=== PATIENT | female | born 1970 | race Two or more races ===

== ENCOUNTER → 2025-04-19 | Day surgery (SDC) | payer MEDICAID ==
[2025-04-17 12:11] LABS: Hematocrit 41.2 % (36.0-46.0); Hemoglobin 13.7 g/dL (12.2-16.2); Mean Corpuscular Hemoglobin 28.5 pg (28.0-32.0); Mean Corpuscular Volume 85.6 fL (80.0-100.0); Nucleated Red Blood Cells % 0.1 %
[2025-04-17 12:23] LABS: Urine Protein, UAD Negative (Negative)
[2025-04-17 12:35] LABS: INR 0.99 (0.9-1.15); Partial Thromboplastin Time 27.4 SEC (24.5-34.5); Prothrombin Time 10.5 sec (9.3-11.8)
[2025-04-17 12:39] LABS: Alanine Aminotransferase 10 U/L (7-40); Albumin 4.5 g/dL (3.2-4.8); Alkaline Phosphatase 86 U/L (46-116); Anion Gap 7 (5-15); BUN/Creatinine Ratio 17.3 (10.0-20.0); Blood Urea Nitrogen 13 mg/dL (9-23); Calcium 9.9 mg/dL (8.7-10.4); Carbon Dioxide 28 mmol/L (20-31); Chloride 107 mmol/L (98-107); Glucose 84 mg/dL (74-106); Potassium 4.3 mmol/L (3.5-5.1); Sodium 142 mmol/L (136-145); Total Protein 6.8 g/dL (5.7-8.2)
[2025-04-17 12:40] LABS: Bilirubin, Total 0.4 mg/dL (0.2-1.0)
[~2025-04-19] VITALS: Ht 167.6 cm; Wt 56.7 kg
[~2025-04-19] MED LIST: CHOL200064 PO; LIDOCAINE 1% INJ PF 5ML AMP ONE; NIFE1TAB31 PO; OMEP20TA PO; ONDANSETRON HCL 4 MG/2 ML VIAL ONE; PROPOFOL 10 MG/ML 20 ML IV ONE
--- NOTE | 2025-04-19 08:18 | DVHHP2 ---
GI H&P Pre-Op Assessment Date: 04/19/25 Chief complaint: colon cancer screening, epigastric pain HPI: per clinic note Past medical history: per clinic note Past surgical history: per clinic note Family history: per clinic note Physical exam: General: NAD, AAOX3 HEENT: PERRL, no scleral icterus, normal hearing, gums without lesions or bleeding, oropharynx clear without erythema or exudate. Neck: Supple without enlargement of the thyroid, or lymphadenopathy. Chest: Normal size and shape, no tenderness, lung pablo clear to auscultation and percussion, nonlabored breathing. Heart: RRR, no murmur Abdomen: non-distended, no tenderness to palpation, +BS, no hepatosplenomegaly Extremities: no edema Neurological: CN II-XII intact, sensation intact in all extremities, 5+ strength in all extremities Skin: No rashes, No jaundice Assessment: - colon cancer screening - epigastric pain Plan: - EGD - Colonoscopy - Risks (bleeding, infection, perforation, reaction to sedation medications and cardiopulmonary arrest) and benefit of the procedure were explained to patient. Patient agrees to undergo the procedure. LETY MITCHELL MD Apr 19, 2025 08:18
--- NOTE | 2025-04-19 08:20 | DVHOP2 ---
Operative Report DATE OF OPERATION: 04/19/25 PROCEDURE: Upper Endoscopy. PREOPERATIVE INDICATION: The patient is a 54 -year-old female undergoing endoscopy for epigastric pain. POSTOPERATIVE DIAGNOSES: 1. Slight gastritis 2. 1 cm hiatal hernia PROCEDURE PERFORMED BY: Cosme Greenwood SCOPE: Olympus videoendoscope. ASA CLASS: 2 PREOPERATIVE MEDICATIONS: MAC with Gerson ALVARENGA PROCEDURE IN DETAIL: After obtaining an informed consent, the patient was placed on left lateral decubitus position. The patient was then sedated with the above medications. A bite block was placed between her teeth. The endoscope was then passed through the oropharynx, into the esophagus, and through the stomach and pylorus up to the second and third part of the duodenum. The duodenal was normal in appearance. There was slight gastritis. Gastric biopsies were obtained using cold forceps. The GE junction was at 35 cm. There was a 1 cm hiatal hernia. The esophagus was normal in appearance. The endoscope was then withdrawn. The patient tolerated the procedure well without difficulty. COMPLICATIONS : None SPECIMENS: Gastric biopsies DISPOSITION: D/C to home PLAN: 1. Await for biopsy result 2. Continue omeprazole. COSME GREENWOOD MD Apr 19, 2025 08:20
[2025-04-19 08:21] VITALS: PULSE 65; RESP 12; TEMP 97.2; O2SAT 100
--- NOTE | 2025-04-19 08:22 | DVHOP2 ---
Operative Report DATE OF OPERATION: 04/19/25 PROCEDURE: Colonoscopy. PREOPERATIVE INDICATION: The patient is a 54 -year-old female undergoing colonoscopy for colon cancer screening. POSTOPERATIVE DIAGNOSES: 1. The colonoscopy could not be done because the prep was very poor. PROCEDURE PERFORMED BY: Cosme Greenwood M.D. SCOPE: Olympus videocolonoscope. ASA CLASS: 2 PREOPERATIVE MEDICATIONS: MAC with Nieto [employer] PROCEDURE IN DETAIL: After obtaining an informed consent, the patient was placed on left lateral decubitus position. She was then sedated with the above medications. A rectal examination was performed that was normal. The colonoscope was then inserted into the rectum. The colonoscope could not be advanced due to poor prep. The observed rectum was normal in appearance. The colonoscope was then withdrawn. The patient tolerated the procedure well without difficulty. WITHDRAWAL TIME: N/A QUALITY OF THE PREP: Gilmore Bowel Prep score: 0 COMPLICATIONS : None SPECIMENS: None DISPOSITION: D/C to home PLAN: 1. Patient needs repeat colonoscopy because of poor prep. COSME GREENWOOD MD Apr 19, 2025 08:22
--- NOTE | 2025-04-19 08:22 | DVHDS2 ---
Physician Discharge Progress N Final Diagnosis: Gastritis, hiatal hernia Incomplete colonoscopy Operations or Procedures: Operations or Procedures EGD with biopsy Incomplete colonoscopy Condition on Discharge: Good Disposition: Home Discharge Instructions: Diet: Regular Activity: No Restrictions, As Tolerated Medications: Resume previous home medications Follow Up Care: Discharge Statement: "Patient was advised to return to the ER or call 911 if any headaches, dizziness, shortness of breath, chest pain, abdominal pain, bleeding, fevers, or worsening of medical condition. Patient was counseled about treatment plan, medications, possible side effects, patientverbalized understanding. All questions were answered to the best of my ability. This discharge took greater then 30 minutes in planning, reviewing documentation, counseling the patient, and discussing with other team members." LETY MITCHELL MD Apr 19, 2025 08:22
[2025-04-19 08:31] VITALS: PULSE 77; RESP 13; O2SAT 95
[2025-04-19 08:51] VITALS: BP 130/82; PULSE 62; RESP 17; O2SAT 99
== END | disposition home or self-care (01) ==
LOC: GI 06:45
PROVIDERS: ATTEND Internal Medicine Gastroenterology
DX: Z12.11 Encounter for screening for malignant neoplasm of colon (principal); K29.50 Unspecified chronic gastritis without bleeding; R10.13 Epigastric pain; K44.9 Diaphragmatic hernia without obstruction or gangrene; K63.89 Other specified diseases of intestine; Z79.899 Other long term (current) drug therapy; Z98.890 Other specified postprocedural states
CPT/HCPCS: 36415; 43239; 45378; 80053; 81001; 84702; 85025; 85610; 85730; 88305; 88342; J2405; J2704; J7030